=== PATIENT | male | born 1985 | race Caucasian/White ===

== ENCOUNTER 2020-12-15 18:31 | Emergency (ER) | payer OTHER, SELFPAY ==
--- NOTE | ~2020-12-15 | XR_ITS ---
EXAMINATION: XR tibia fibula RT 2V INDICATION: Right lower leg pain TECHNIQUE: Two views of the right tibia and fibula are obtained on four radiographs. COMPARISON: None available FINDINGS: There is no fracture, dislocation, or subluxation. The bones and joint spaces are normal. N o radiopaque foreign body is identified. There is mild anterior soft tissue swelling over the proxima l/mid leg. IMPRESSION: 1. Soft tissue swelling without acute osseous abnormality. Reviewed, dictated and finalized at location A. ROPATH
--- NOTE | 2020-12-15 18:47 | ED.LOWEXIN ---
HPI - Extremity Injury (Lower) General Chief Complaint: Extremity Injury, Lower Stated Complaint: leg pain Time Seen by Provider: 12/15/20 18:48 Source: patient Mode of arrival: ambulatory Limitations: no limitations History of Present Illness HPI Narrative: Previously well 35-year-old man comes in today complaining of pain swelling and bruising on his right anterior lower leg after he injured it at work at approximately 2:00 a.m. this afternoon. Patient states that an umbrella sy struck his leg. He states he has pain with ambulation but denies any calf pain, numbness, tingling and has no history of pulmonary emboli or DVTs. He is a smoker. patient states that he has had problems with elevated blood pressure on his doctor's office before. He also states that he had drank a lot of energy drinks today and coming to the hospital has provoked feelings reminiscent of when his mother here a year ago. complaint: leg injury Onset (ago): hour(s) (5) Type of Injury: blunt Place: work Severity: moderate Relieving factors: rest Exacerbating factors: weight bearing, movement and palpation Context: direct blow Associated symptoms: swelling and able to partially bear weight Other symptoms: none Related Data Allergies Allergy/AdvReac Type Severity Reaction Status Date / Time No Known Allergies Allergy Verified 12/15/20 19:27 Review of Systems Cardiovascular: Cardiovascular: Denies chest pain and Denies radiating jaw, neck or arm pain Respiratory: Respiratory: Denies cough, Denies dyspnea and Denies wheezing Musculoskeletal: Musculoskeletal: Denies arthralgias and Denies joint swelling Integumentary/Breasts: Skin/Breast: Denies pruritus and Denies rash Neurologic: Denies vertigo, Denies dizziness and Denies syncope Hematologic/Lymphatic: Hematologic/Lymphatic: Denies easy bleeding and Denies easy bruising PMFSH Surgical History Surgical History (Updated 12/15/20 @ 18:56 by Chan Guzman MD) History of surgery on arm left, for fracture Social History Social History (Updated 12/15/20 @ 18:56 by Chan Guzman MD) Smoking status: Current every day smoker Alcohol intake: never Substance use: never Living arrangements: with family Exam Const: General: alert Orientation/consciousness: patient oriented x3 Other: moderate acute distress. Eyes: Conjunctivae: conjunctivae normal Pupils: Equal, round and reactive pupils present EOM: EOMs intact bilaterally Resp: Effort & Inspection: normal respiratory effort and not labored Auscultation: clear to auscultation bilaterally, no rales, no rhonchi and no wheezes Cardio: Rate: regular rate Rhythm: regular rhythm Heart sounds: no murmurs Skin: General skin exam: normal color Rashes: no rashes Neuro: General: patient oriented x3, moves all extremities, no focal motor deficits and CN's II-XI intact bilaterally Speech: normal speech Gait exam (Neuro): Normal gait present Extrem: General: no clubbing, cyanosis or edema Other: Contusion over the right sweeney with swelling, bruising but no erythema. No calf tenderness or swelling. Distal neurovascular exam is intact. Psych: Appearance: grossly normal and well kempt Mental Status: mental status grossly normal Affect: normal affect Attitude: cooperative Thought content: Yes Normal thought content present Course Vital Signs Vital signs: Vital Signs Temperature 36.8 C 12/15/20 18:49 Pulse Rate 132 H 12/15/20 18:49 Respiratory Rate 18 12/15/20 18:49 Blood Pressure 158/106 H 12/15/20 18:49 Pulse Oximetry 100 12/15/20 18:49 Temperature 36.8 C 12/15/20 18:49 Pulse Rate 114 H 12/15/20 19:09 Respiratory Rate 16 12/15/20 19:09 Blood Pressure 154/92 H 12/15/20 19:09 Pulse Oximetry 100 12/15/20 19:09 MDM - Extremity Injury (Lower) Differential Diagnosis Differential diagnosis: Likely other ( Fibular fracture, contusion.) Discharge Plan Discharge Clinical Imp
[2020-12-15 18:49] VITALS: BP 158/106; PULSE 132; RESP 18; TEMP 36.8; O2SAT 100
[2020-12-15 19:09] VITALS: BP 154/92; PULSE 114; RESP 16; O2SAT 100
[2020-12-15 19:32] VITALS: BP 112/78; PULSE 110; RESP 16; O2SAT 100
--- NOTE | 2020-12-20 07:30 | PCWOUND ---
Correction on wound location. The location was the RIGHT lower leg not the left as documented on wound assessment. Unable to change wound assessment location due to system issue.
== END 2020-12-15 19:42 | disposition home or self-care (01) ==
PROVIDERS: Emergency Provider Emergency Medicine
DX: S80.11XA Contusion of right lower leg, initial encounter (principal); W22.8XXA Striking against or struck by other objects, initial encounter
CPT/HCPCS: 73590; 99283

== ENCOUNTER 2021-04-18 16:51 | Emergency (ER) | payer OTHER, SELFPAY ==
--- NOTE | ~2021-04-18 | XR_ITS ---
XR finger 1st LT min 2V 04/18/2021 17:43 Indication: First finger pain after blunt trauma by a trailer hitch Procedure: 3 views left first finger Comparison: 09/15/2018 Findings: There is a comminuted intra-articular fracture first proximal phalanx extending to the MCP joint. Minimal displacement. No significant angulation. Mild soft tissue swelling. No foreign bodies. Impression: 1: Mildly displaced comminuted intra-articular fracture left first proximal phalanx. Reviewed, dictated and finalized at location A. Impression: 1: Mildly displaced comminuted intra-articular fracture left first proximal pha lanx.
[2021-04-18 17:10] VITALS: BP 153/118; PULSE 113; RESP 20; TEMP 36.9; O2SAT 99
--- NOTE | 2021-04-18 17:32 | ED.UPPEXIN ---
HPI - Extremity Injury (Upper) General Chief Complaint: Extremity Injury, Upper Stated Complaint: thumb injury Time Seen by Provider: 04/18/21 17:32 Source: patient Mode of arrival: ambulatory Limitations: no limitations History of Present Illness HPI narrative: Previously well 35-year-old man comes in today complaining of pain and swelling of his left thumb for the last 2 days. Patient states that it got smash under a trailer hitch. Patient states that he has pain with movement, and palpation. He denies numbness, bleeding or prior hand surgeries. MD complaint: injury to: left and finger (thumb) Onset (ago): day(s) (2) Other Extremity Injury: Left: fingers (thumb) Other injuries: none Place: outdoors Severity: moderate Relieving factors: rest Exacerbating factors: movement of extremity and other (palpation) Context: crush Associated symptoms: denies other symptoms Related Data Allergies Allergy/AdvReac Type Severity Reaction Status Date / Time No Known Allergies Allergy Verified 04/18/21 17:14 Review of Systems Review of Systems: All systems reviewed & are unremarkable except as noted in HPI and below Cardiovascular: Cardiovascular: Denies chest pain and Denies radiating jaw, neck or arm pain Respiratory: Respiratory: Denies cough and Denies dyspnea Gastrointestinal: Gastrointestinal: Denies abdominal pain, Denies nausea and Denies vomiting Musculoskeletal: Musculoskeletal: Reports as per HPI, Reports arthralgias and Reports joint swelling Integumentary/Breasts: Skin/Breast: Denies pruritus, Denies erythema and Denies rash Neurologic: Denies vertigo, Denies dizziness and Denies syncope Hematologic/Lymphatic: Hematologic/Lymphatic: Denies easy bleeding and Denies easy bruising PMFSH Surgical History Surgical History History of surgery on arm left, for fracture Social History Social History Smoking status: Current every day smoker Alcohol intake: never Substance use: never Gender identity (if verbalized by the patient): Male Exam Const: General: healthy appearing and alert Orientation/consciousness: patient oriented x3 Limitations: no limitations Other: [id number] acute distress. Resp: Effort & Inspection: normal respiratory effort and not labored Auscultation: clear to auscultation bilaterally, no rales, no rhonchi and no wheezes Cardio: Rate: regular rate Rhythm: regular rhythm Heart sounds: no murmurs Skin: General skin exam: normal color, no jaundice and no pallor Rashes: no rashes Neuro: General: patient oriented x3, no focal motor deficits and CN's II-XI intact bilaterally Speech: normal speech Gait exam (Neuro): Normal gait present Extrem: General: no clubbing, cyanosis or edema Other: There is swelling over the proximal phalanx of the left thumb. There is tenderness with movement of the IP, the MCP. There is no tenderness over the metacarpal, carpals or the snuffbox. Skin is intact and there is no subungual hematoma. Distal neurovascular exam is intact. Psych: Appearance: grossly normal and well kempt Mental Status: mental status grossly normal Affect: normal affect Attitude: cooperative Thought content: Yes Normal thought content present Course Vital Signs Vital signs: Vital Signs Temperature 36.9 C 04/18/21 17:10 Pulse Rate 113 H 04/18/21 17:10 Respiratory Rate 20 04/18/21 17:10 Blood Pressure 153/118 H 04/18/21 17:10 Pulse Oximetry 99 04/18/21 17:10 Temperature 36.9 C 04/18/21 17:10 Pulse Rate 113 H 04/18/21 17:10 Respiratory Rate 20 04/18/21 17:10 Blood Pressure 153/118 H 04/18/21 17:10 Pulse Oximetry 99 04/18/21 17:10 MDM - Extremity Injury (Upper) MDM Narrative Medical decision making narrative: Discussed findings with Dr. Martin, Hand Fellow. Pt to have thumb spica and F/U with Dr Shamir Leyva (pro
[2021-04-18 19:00] VITALS: BP 156/113; PULSE 102; RESP 20; TEMP 36.9; O2SAT 100
== END 2021-04-18 19:05 | disposition home or self-care (01) ==
PROVIDERS: Emergency Provider Emergency Medicine
DX: S62.515A Nondisplaced fracture of proximal phalanx of left thumb, initial encounter for closed fracture (principal); W23.0XXA Caught, crushed, jammed, or pinched between moving objects, initial encounter; F17.200 Nicotine dependence, unspecified, uncomplicated
CPT/HCPCS: 29125; 73140; 99283; 99284